=== PATIENT | female | born 1980 | race Caucasian/White ===

== ENCOUNTER 2016-12-24 09:24 | Day surgery (SDC) | payer MEDICAID ==
[2016-12-24] VITALS (8 sets, daily range): BP systolic 103–123; BP diastolic 61–86; PULSE 74–94; RESP 16–22; Ht 149.9 cm; Wt 53.0 kg
[~2016-12-24] VITALS: Ht 149.9 cm; Wt 53.0 kg
[2016-12-24] MEDS ORDERED: CEFAZOLIN 2 GM/50 ML (PMX) 50 ML IVPB ONE (09:30)
[2016-12-24] MEDS ORDERED: SOD CHLORIDE 0.9% 1,000 ML IV SCH (09:30)
[2016-12-24] MEDS ORDERED: METF500T4 PO (10:20)
[2016-12-24] MEDS ORDERED: ONDANSETRON 4 MG INJ IV PRN (11:00)
[2016-12-24] MEDS ORDERED: KETOROLAC 30 MG INJ IV PRN (11:00)
[2016-12-24] MEDS ORDERED: MEPERIDINE 25 MG INJ IV PRN (11:00)
[2016-12-24] MEDS ORDERED: HYDROmorphONE (0.2 MG/ML) 10ML SYG IV PRN ×3 (11:00)
[2016-12-24] MEDS ORDERED: OXYCODONE/ACETAMINOPHEN (5/325) TAB PO PRN ×2 (11:00)
[2016-12-24] MEDS ORDERED: INSULIN ASPART [NOVOLOG] 3 ML PEN SC ONE (11:00)
[2016-12-24] MEDS ORDERED: LABETALOL HCL 20MG INJ IV PRN (11:00)
[2016-12-24] MEDS ORDERED: DIPHENHYDRAMINE 50 MG INJ IV PRN (11:00)
[2016-12-24] MEDS ORDERED: hydrALAzine 20 MG INJ IV PRN (11:00)
[2016-12-24] MEDS ORDERED: FENTAnyl 50 MCG/ML VIAL IV PRN ×3 (11:00)
[2016-12-24] MEDS ORDERED: EPHEDrine SULFATE 50 MG/5 ML SYG IV PRN (11:00)
[2016-12-24] MEDS ORDERED: FENTAnyl 50 MCG/ML VIAL ONE (11:29)
[2016-12-24] MEDS ORDERED: PROPOFOL 100 ML ONE (11:43)
[2016-12-24] MEDS ORDERED: LIDOCAINE 2% (SDV) 5 ML INJ ONE (11:43)
[2016-12-24] MEDS ORDERED: CEFAZOLIN 1 GM INJ ONE (11:43)
--- NOTE | 2016-12-24 12:06 | OPR ---
Date/Time of Note Date/Time of Note DATE: 12/24/16 TIME: 12:03 Operative Report Preoperative Diagnosis Left breast mass Postoperative Diagnosis Same Operation/Procedure Performed Left partial mastectomy Surgeon: FIDENCIO TINSLEY MD or assistant: EDMUNDO LOVE MD Anesthesia Type: general Estimated Blood Loss: 10 - 50 ml's Transfusion Required: no Specimens Left breast specimen Grafts/Implants: none Complications: no FIDENCIO TINSLEY MD Dec 24, 2016 12:06
[2016-12-24] MEDS ORDERED: SUGAMMADEX SODIUM 200 MG/2 ML VIAL IV ONE (12:14)
[2016-12-24] MEDS ORDERED: HYDROCODONE/APAP (7.5/325) TAB PO PRN (12:30)
--- NOTE | 2016-12-24 12:54 | OPR ---
DATE OF OPERATION: 12/24/2016 PREOPERATIVE DIAGNOSIS: Fibroepithelial lesion, left breast. POSTOPERATIVE DIAGNOSIS: Fibroepithelial lesion, left breast. OPERATION PERFORMED: Left partial mastectomy. ANESTHESIA: General. ANESTHESIOLOGIST: Dr. Estrada. SURGEON: Dr. Cruz. ARCHITECTURAL TECHNOLOGIST: Dr. Lizarraga. INDICATIONS FOR PROCEDURE: Patient is a 36-year-old female, who presented with an enlarging left breast mass. Biopsy was not completely diagnostic and it was recommended the patient have the lesion excised. She consented and was scheduled for surgery. OPERATIVE PROCEDURE: Patient was brought to the operating theater, placed under general anesthesia. The left breast was prepped and draped in the usual sterile fashion. A periareolar incision was made from the 11 o'clock location through the 12 o'clock location to approximately 3 o'clock location. Subcutaneous tissue was dissected with cautery. Deep within the breast parenchyma, a well-circumscribed mass was identified. It was enucleated with a gloved finger, transected, removed, and sent for permanent pathologic analysis. The wound was irrigated. Residual bleeding was controlled with cautery. The skin was then reapproximated with a deep dermal layer of 4-0 Vicryl sutures placed in interrupted fashion, followed by final skin approximation with 5-0 PDS suture in subcuticular fashion. Dermabond was then applied. The patient tolerated procedure well. ESTIMATED BLOOD LOSS: Approximately 20 mL. COMPLICATIONS: There were no complications. DISPOSITION: The patient was transported in stable condition to recovery room where a circumferential compression dressing was applied. Dictated By: Pratik Cruz MD /daryl/cristela /Document#: [id number]
== END 2016-12-24 13:45 | disposition home or self-care (01) ==
LOC: SDS 09:24
PROVIDERS: ATTEND Surgery Surgical Oncology
DX: D24.2 Benign neoplasm of left breast (principal); N60.22 Fibroadenosis of left breast; N60.92 Unspecified benign mammary dysplasia of left breast; N60.82 Other benign mammary dysplasias of left breast; E11.9 Type 2 diabetes mellitus without complications; I10 Essential (primary) hypertension
CPT/HCPCS: 19301; 82962; 84703; 88307; J0690; J3010; Z7512; Z7610